=== PATIENT | female | born 1945 | race Caucasian/White ===

== ENCOUNTER 2017-10-23 12:11 | Outpatient (CLI) | payer OTHER | END 2017-10-23 12:23 | disposition home or self-care (01) | LOC: RAD 12:11 → LAB 12:11 → RAD 12:23 | DX: J30.1 Allergic rhinitis due to pollen (principal); J45.51 Severe persistent asthma with (acute) exacerbation; Z77.22 Contact with and (suspected) exposure to environmental tobacco smoke (acute) (chronic); R06.02 Shortness of breath ==

== ENCOUNTER 2023-12-05 07:46 | Outpatient (CLI) | payer OTHER | END 2023-12-05 07:47 | disposition home or self-care (01) | LOC: NUCLEAR 07:46 | PROVIDERS: ATTEND Internal Medicine Pulmonary Disease | DX: R91.1 Solitary pulmonary nodule (principal); G47.33 Obstructive sleep apnea (adult) (pediatric); J45.50 Severe persistent asthma, uncomplicated | CPT/HCPCS: 78815; A9552 ==